=== PATIENT | female | born 1940 | race Caucasian/White ===

== ENCOUNTER 2019-07-14 08:48 | Day surgery (SDC) | payer MEDICARE, OTHER, MEDICAID, SELFPAY ==
[2019-07-11 16:38] VITALS: BMI 29.0
[2019-07-14 09:19] VITALS: BP 153/96; PULSE 81; RESP 18; TEMP 36.5; O2SAT 100
[2019-07-14 09:22] LABS: Glucose Point of Care 436 mg/dL (70-110)
--- NOTE | 2019-07-14 09:30 | W.PM.OPSUD ---
Surgery/Procedure H&P Update DATE OF PROCEDURE: July 14, 2019 DATE H&P PERFORMED: 07/11/19 H&P UPDATE INFORMATION: I have reviewed H&P completed within last 30 days, I have examined patient prior to procedure and No changes to prior documentation PREOP DIAGNOSIS: Suprapubic abscess PLANNED PROCEDURE: Operation Date: 07/14/19 10:00 Proposed Procedures p Incision And Drainage of supraubic abscess [id number] L02.219(Not Applicable) - Álvaro Garduno MD
[2019-07-14] MEDS: sodium chloride 0.9% 1,000 ML 30 ML IV (09:31)
--- NOTE | 2019-07-14 09:33 | ANES.PREANE2 ---
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 WIll have glidscope Was Beta Sekou taken within 24 hours: N/A Last intake: Intake Last Liquid Date 07/13/19 Last Liquid Time 19:00 Last Solid Date 07/13/19 Last Solid Time 19:00 Social: Social History: No alcohol and No tobacco Exam: Pre-Anes Outpt Exam: alert, oriented x 3, clear to auscultation bilaterally and regular rate & rhythm Airway: Cervical ROM: WNL MP: 1 Dentition: Full Pulmonary: Pulmonary: Sleep apnea CV/HEM: CV/HEM: HTN : : None reported Hepatic: Hepatic: None reported GI: GI: None reported Metabolic: Metabolic: DM Musc/skel: Musc/skel: OA/DJD Neuropsych: Neuropsych: None reported Anesthetic Plan: ASA status: 3 Anesthesia: General Risk of > 500 ml blood loss (7ml/kg in children): No Other Pertinent Information: BG > 400 will give insulin Meds/Allergies Current Medications: Current Medications Generic Name Dose Route Start Last Admin Trade Name Freq PRN Reason Stop Dose Admin Sodium Chloride 1,000 mls @ 30 ml s/hr 07/14/19 09:00 07/14/19 09:31 Sodium Chloride 0.9% IV 07/15/19 08:59 30 mls/hr .Q24H KIARRA Administration PFSH Anesthesia PFSH: Medical History Diabetes Hyperlipidemia Hypertension Surgical History History of breast surgery 2x lumps removed History of D&C History of hysterectomy Status post colonoscopy Family History Other Anesthesia complication Denies family history of Bleeding disorder Social History Smoking and tobacco status: never smoked History of recent travel: No Data Anesthesia Other Labs: Laboratory Results - last 48 hr 07/14/19 09:20 POC Glucose 436 Cardiac Studies: No Data to Display
[2019-07-14 09:46] LABS: Glucose Point of Care 419 mg/dL (70-110)
[2019-07-14] MEDS: insulin regular-human 100 units/1 mL 5 UNIT IVP (09:54)
[2019-07-14] MEDS: lidocaine 1% INJ 20 mL SUBCUT (10:22)
--- NOTE | 2019-07-14 10:29 | P.OP_ITS ---
Operative Report Date of procedure: July 14, 2019 Pre-op Diagnosis: Suprapubic abscess Post-op Diagnosis: 6 x 6 cm suprapubic abscess Poorly controlled diabetic Procedure Done: Incision and drainage of suprapubic abscess Pathology: none sent Surgeon: Álvaro Garduno Anesthesia: MAC Estimated blood loss (mL): 5 Condition: stable Disposition: PACU Procedure: The patient was in the operating room and placed under MAC after IV a ntibiotic had been administered. The suprapubic area was prepped and draped in a sterile manner. Using 15 blade the abscess cavity was unroofed and necrotic skin and subcutis tissue was excised. Loculations were taken down bluntly and the wound was irrigated saline and packed with Kerlix gauze and covered with ABDs. The patient was taken to recovery room in stable condition.
[2019-07-14 10:38] VITALS: BP 93/53; PULSE 81; RESP 18; TEMP 36.1; O2SAT 95
[2019-07-14 10:53] LABS: Glucose Point of Care 410 mg/dL (70-110)
[2019-07-14 10:56] VITALS: BP 130/78; PULSE 70; RESP 18; O2SAT 96
[2019-07-14] MEDS: HYDROcodone-acetaminophen 5-325 mg Tablet 1 TAB PO (11:04)
== END 2019-07-14 11:45 | disposition home or self-care (01) ==
PROVIDERS: Family Provider Nurse Practitioner Family; PCP Nurse Practitioner Family; Visit Provider Surgery
PROC: (CPT 10060; principal; 2019-07-14 10:00)
DX: L02.219 Cutaneous abscess of trunk, unspecified (principal); E11.9 Type 2 diabetes mellitus without complications; I10 Essential (primary) hypertension; E78.5 Hyperlipidemia, unspecified; G47.30 Sleep apnea, unspecified; M19.90 Unspecified osteoarthritis, unspecified site
CPT/HCPCS: 10060; 12345; 36416; 82962; 96374; J0690; J1815; J2001; J2270; J2704; J3490; J7030